=== PATIENT | male | born 1985 | race Caucasian/White ===

== ENCOUNTER 2024-01-08 18:47 | Emergency (ER) | payer OTHER ==
[2024-01-08 19:29] VITALS: BP 112/74; PULSE 91; RESP 20; TEMP 98.1; BMI 26.6
[2024-01-08] MEDS ORDERED: LIDOCAINE 4% PATCH TP ONE (20:58)
[2024-01-08] MEDS ORDERED: IBUPROFEN 400 MG TABLET (FP) PO ONE (20:59)
[2024-01-08] MEDS ORDERED: METHOCARBAMOL 500 MG TABLET ONE (20:59)
[2024-01-08] MEDS ORDERED: ACETAMINOPHEN 500 MG TABLET (FP) ONE (20:59)
[2024-01-08] MEDS: LIDOCAINE 4% PATCH TP ONE (21:02)
[2024-01-08] MEDS: IBUPROFEN 400 MG TABLET (FP) PO ONE (21:02)
[2024-01-08] MEDS: METHOCARBAMOL 500 MG TABLET PO ONE (21:02)
[2024-01-08] MEDS: ACETAMINOPHEN 500 MG TABLET (FP) PO ONE (21:02)
== END 2024-01-08 21:39 | disposition home or self-care (01) ==
LOC: JERFT 18:47 → JER 18:47 → JERFT 21:39
DX: M54.2 Cervicalgia (principal); M54.6 Pain in thoracic spine; M54.50 Low back pain, unspecified; M25.561 Pain in right knee; M25.562 Pain in left knee; V43.52XA Car driver injured in collision with other type car in traffic accident, initial encounter; Y92.410 Unspecified street and highway as the place of occurrence of the external cause
CPT/HCPCS: 71046-TC-FY; 99283-25